=== PATIENT | male | born 1955 | race Caucasian/White ===

== ENCOUNTER 2018-12-24 12:59 | Outpatient (CLI) | payer OTHER | END 2018-12-24 13:15 | disposition home or self-care (01) | LOC: SONOGRAMA 12:59 → MAMO-SONO 13:15 → SONOGRAMA 13:15 | DX: M25.512 Pain in left shoulder (principal) ==

== ENCOUNTER 2025-11-01 07:04 | Outpatient (CLI) | payer OTHER | END 2025-11-01 07:09 | disposition home or self-care (01) | LOC: TOM 07:04 | DX: I71.40 Abdominal aortic aneurysm, without rupture, unspecified (principal) | CPT/HCPCS: 74174; Q9965 ==